=== PATIENT | female | born 1985 | race Caucasian/White ===

== ENCOUNTER 2022-09-11 07:08 | Emergency (ER) | payer MEDICARE, MEDICAID ==
[~2022-09-11] VITALS: Ht 172.7 cm; Wt 105.7 kg
[2022-09-11 07:19] VITALS: BP 157/78
[2022-09-11] MEDS ORDERED: MORPHINE SULFATE 10 MG/ML VIAL IVP ONE (07:55)
[2022-09-11] MEDS ORDERED: KETOROLAC 15 MG/ML VIAL IM ONE (07:55)
--- NOTE | 2022-09-11 09:00 | NUR ---
37F PRESENTS TO ED WITH C/O BACK PAIN WORSENING X2 MONTHS. PT REPORTS A CONSTANT CHRONIC BACK PAIN, SHARP STABBING LIKE, 9/10 ON PAIN SCALE, NONRADIATING. PT DENIES RECENT TRAUMA/INJURY. PT REPORTS HX OF MULTIPLE BACK SURGERIES SINCE .
[2022-09-11] MEDS ORDERED: KETOROLAC 15 MG/ML VIAL IVP ONE (09:05)
--- NOTE | 2022-09-11 09:50 | NUR ---
IV removed, catheter intact and site benign. Applied folded 4x4 gauze and tape to stop bleeding.
[2022-09-11 09:57] VITALS: BP 116/74
--- NOTE | 2022-09-11 09:57 | NUR ---
Patient discharged with v/s stable. Written and verbal after care instructions ABOUT CHRONIC BACK PAIN given and explained. Patient verbalized understanding. Wheel Chair Assisted with by caregiver TO [facility]. All questions addressed prior to discharge. Advised to follow up with PMD. Addendum: 09/11/22 at 1000 by [email or web address] PT HR [id number], JUSTINE TO DC PER DR WILLINGHAM
== END 2022-09-11 07:57 | disposition home or self-care (01) ==
LOC: MED 07:08
DX: M54.50 Low back pain, unspecified (principal)
CPT/HCPCS: 96374; 96375; 99284; J1885; J2270

== ENCOUNTER 2022-11-10 20:56 | Emergency (ER) | payer MEDICARE, MEDICAID ==
[~2022-11-10] VITALS: Ht 170.2 cm; Wt 104.3 kg
[2022-11-10 21:00] VITALS: BP 200/84
--- NOTE | 2022-11-10 21:05 | NUR ---
to lobby a/w bed via w/c
[2022-11-10] MEDS ORDERED: oxyCODONE 10 MG TABER PO ONE (21:50)
[2022-11-10] MEDS ORDERED: OXYC30TA2 PO (22:06)
[2022-11-10 22:57] VITALS: BP 122/74
--- NOTE | 2022-11-10 22:57 | NUR ---
Patient discharged with v/s stable. Written and verbal after care instructions given and explained. Patient alert, oriented and verbalized understanding of instructions. Ambulatory with by parent. All questions addressed prior to discharge. ID band removed. Patient advised to follow up with PMD. Rx of OXYCODONE given. Patient educated on indication of medication including possible reaction and side effects. Opportunity to ask questions provided and answered.
== END 2022-11-10 22:57 | disposition home or self-care (01) ==
LOC: MED 20:56
DX: G89.29 Other chronic pain (principal); M54.50 Low back pain, unspecified; Z76.0 Encounter for issue of repeat prescription; E11.9 Type 2 diabetes mellitus without complications; I10 Essential (primary) hypertension; Z98.890 Other specified postprocedural states; Z79.891 Long term (current) use of opiate analgesic
CPT/HCPCS: 99281

== ENCOUNTER 2022-12-10 19:36 | Emergency (ER) | payer MEDICARE, MEDICAID ==
[~2022-12-10] VITALS: Ht 170.2 cm; Wt 104.3 kg
[~2022-12-10 19:36] MED LIST: OXYC30TA2 PO
[2022-12-10 20:36] VITALS: BP 158/129
--- NOTE | 2022-12-10 23:00 | NUR ---
PT TO 9
--- NOTE | 2022-12-10 23:13 | NUR ---
Patient being evaluated by physician at bedside.
[2022-12-10] MEDS ORDERED: HYDROmorphone PFS 2 MG/ML SYR IM ONE (23:20)
[2022-12-11 00:15] VITALS: BP 158/129
--- NOTE | 2022-12-11 00:15 | NUR ---
Patient discharged with v/s stable. Written and verbal after care instructions given and explained. Patient verbalized understanding. Wheelchair assisted and accompanied by parent. All questions addressed prior to discharge. Advised to follow up with PMD.
== END 2022-12-11 00:15 | disposition home or self-care (01) ==
LOC: MED 19:36
DX: M54.50 Low back pain, unspecified (principal); E11.9 Type 2 diabetes mellitus without complications; I10 Essential (primary) hypertension; Z79.4 Long term (current) use of insulin; Z79.899 Other long term (current) drug therapy; Z98.890 Other specified postprocedural states
CPT/HCPCS: 96372; 99283; J1170

== ENCOUNTER 2023-08-06 19:56 | Emergency (ER) | payer MEDICARE, MEDICAID ==
[~2023-08-06] VITALS: Ht 170.2 cm; Wt 96.2 kg
[2023-08-06 20:40] VITALS: BP 166/113; PULSE 108; RESP 18; TEMP 98.2; O2SAT 98
[2023-08-06] MEDS ORDERED: NACL 0.9% 1,000 ML IV ONE (21:05)
[2023-08-06] MEDS ORDERED: KETOROLAC 30 MG/ML VIAL IVP ONE (21:05)
[2023-08-06 21:11] LABS: BILIRUBIN,URINE NEGATIVE (NEGATIVE); BLOOD, URINE NEGATIVE (NEGATIVE); COLOR,URINE YELLOW (YELLOW); LEUKOCYTE ESTERASE ,URINE NEGATIVE (NEGATIVE); NITRITE, URINE NEGATIVE (NEGATIVE); PROTEIN,URINE NEGATIVE (NEGATIVE); UGLUCOSE 2+ (NEGATIVE); UROBILINOGEN,URINE 0.2 EU/dL (0.2 - 1)
[2023-08-06 21:15] LABS: APPEARANCE,URINE SLIGHTLY HAZY (CLEAR)
[2023-08-06 21:16] LABS: BACTERIA,URINE 4+ /HPF (None Seen); RBC,URINE NONE SEEN /HPF (0-5); WBC,URINE 0-5 /HPF (0-5)
[2023-08-06 21:46] LABS: BASOPHILS # (AUTO) 0.1 K/uL (0.00-0.22); BASOPHILS % (AUTO) 0.6 % (0.0-2.0); EOSINOPHILS # (AUTO) 0.2 K/uL (0-0.4); EOSINOPHILS % (AUTO) 1.5 % (0.0-4.0); HEMATOCRIT 35.8 % (36-48); HEMOGLOBIN 11.5 g/dL (12.0-16.0); LYMPHOCYTES # (AUTO) 3.7 K/uL (2.5-16.5); MEAN CORPUSCULAR HEMOGLOBIN 24 pg (27-31); MEAN CORPUSCULAR HGB CONC 32 g/dL (33-37); MEAN CORPUSCULAR VOLUME 74.1 fL (80-94); MONOCYTES # (AUTO) 0.7 K/uL (0.8-1.0); MONOCYTES % (AUTO) 5.7 % (1.7-9.3); NEUTROPHILS # (AUTO) 6.9 K/uL (1.8-7.7); NEUTROPHILS % (AUTO) 60.2 % (42.2-75.2); PLATELET COUNT (AUTO) 578 K/uL (140-450); RED BLOOD CELL COUNT(AUTO) 4.83 MIL/uL (4.20-5.40); RED CELL DISTRIBUTION WIDTH 15.4 % (11.6-13.7); WHITE BLOOD COUNT (AUTO) 11.4 K/uL (4.8-10.8)
[2023-08-06 22:02] LABS: ANION GAP 18.7 (8-16); CALCIUM 9.6 mg/dL (8.5-10.1); CARBON DIOXIDE 19.9 mmol/L (21-32); CREATININE 0.9 mg/dL (0.6-1.3); POTASSIUM 3.6 mmol/L (3.5-5.1)
[2023-08-06] MEDS ORDERED: KETOROLAC 30 MG/ML VIAL ONE (22:27)
[2023-08-06] MEDS ORDERED: MORPHINE SULFATE 4 MG/ML SYR IVP ONE (22:50)
[2023-08-06] MEDS ORDERED: cefTRIAXone 1,000 MG VIAL ONE (23:02)
[2023-08-06] MEDS ORDERED: CIPR500T4 PO (23:32)
[2023-08-06 23:43] VITALS: BP 138/90; PULSE 82; RESP 17; TEMP 98; O2SAT 98
== END 2023-08-06 23:43 | disposition home or self-care (01) ==
LOC: MED 19:56
DX: N39.0 Urinary tract infection, site not specified (principal); M54.50 Low back pain, unspecified; N93.9 Abnormal uterine and vaginal bleeding, unspecified; E11.9 Type 2 diabetes mellitus without complications; I10 Essential (primary) hypertension; Z79.899 Other long term (current) drug therapy; Z79.2 Long term (current) use of antibiotics
CPT/HCPCS: 36415; 72131; 76856; 80048; 81001; 81025; 85025; 87086; 96365; 96375; 99285; J0696; J1885; J2270; J7030; Q0092

== ENCOUNTER 2023-12-04 00:53 | Emergency (ER) | payer MEDICARE, MEDICAID ==
[~2023-12-04] VITALS: Ht 167.6 cm; Wt 96.2 kg
[~2023-12-04 00:53] MED LIST changes: +CIPR500T4 PO
[2023-12-04 01:26] VITALS: BP 167/112; PULSE 118; RESP 18; TEMP 97.7; O2SAT 96
[2023-12-04] MEDS: ONDANSETRON 4 MG/2 ML VIAL IVP ONE (02:27)
[2023-12-04] MEDS: KETOROLAC 30 MG/ML VIAL IVP ONE (02:27)
[2023-12-04] MEDS: NACL 0.9% 1,000 ML IV SCH (02:28)
[2023-12-04] MEDS: MORPHINE SULFATE 4 MG/ML SYR IVP ONE ×2 (02:35→04:01)
[2023-12-04 02:48] LABS: BASOPHILS % (AUTO) 0.4 % (0.0-2.0); EOSINOPHILS # (AUTO) 0.2 K/uL (0-0.4); EOSINOPHILS % (AUTO) 1.9 % (0.0-4.0); HEMATOCRIT 32.9 % (36-48); HEMOGLOBIN 10.8 g/dL (12.0-16.0); LYMPHOCYTES % (AUTO) 32.1 % (20.5-51.1); MEAN CORPUSCULAR HEMOGLOBIN 25 pg (27-31); MEAN CORPUSCULAR HGB CONC 33 g/dL (33-37); MEAN CORPUSCULAR VOLUME 76.4 fL (80-94); MONOCYTES # (AUTO) 0.4 K/uL (0.8-1.0); MONOCYTES % (AUTO) 4.6 % (1.7-9.3); NEUTROPHILS # (AUTO) 5.7 K/uL (1.8-7.7); PLATELET COUNT (AUTO) 508 K/uL (140-450); RED BLOOD CELL COUNT(AUTO) 4.31 MIL/uL (4.20-5.40); WHITE BLOOD COUNT (AUTO) 9.3 K/uL (4.8-10.8)
[2023-12-04 03:15] LABS: ANION GAP 19.4 (8-16); CALCIUM 8.8 mg/dL (8.5-10.1); CARBON DIOXIDE 19.4 mmol/L (21-32); CREATININE 0.8 mg/dL (0.6-1.3); POTASSIUM 3.8 mmol/L (3.5-5.1)
[2023-12-04] MEDS: NACL 0.9% 1,000 ML IV ONE (04:02)
[2023-12-04 04:03] LABS: BILIRUBIN,URINE NEGATIVE (NEGATIVE); BLOOD, URINE NEGATIVE (NEGATIVE); COLOR,URINE YELLOW (YELLOW); LEUKOCYTE ESTERASE ,URINE NEGATIVE (NEGATIVE); NITRITE, URINE NEGATIVE (NEGATIVE); PROTEIN,URINE TRACE (NEGATIVE); UGLUCOSE NEGATIVE (NEGATIVE); UROBILINOGEN,URINE 0.2 EU/dL (0.2 - 1)
[2023-12-04 04:06] LABS: APPEARANCE,URINE SLIGHTLY HAZY (CLEAR)
[2023-12-04 04:07] LABS: RBC,URINE 0-5 /HPF (0-5); WBC,URINE 0 /HPF (0-5)
[2023-12-04 04:08] LABS: BACTERIA,URINE 1+ /HPF (None Seen); MUCUS,URINE None Seen /LPF (None Seen); SQUAMOUS EPITHELIAL CELL,UR 0-3 (FEW) /LPF (0-3 (FEW))
[2023-12-04 04:17] LABS: ALBUMIN 3.6 g/dL (3.4-5.0); TOTAL BILIRUBIN 0.2 mg/dL (0.0-1.0); TOTAL PROTEIN, SERUM 7.8 g/dL (6.4-8.2)
[2023-12-04 05:05] VITALS: BP 167/112; PULSE 118; RESP 18; TEMP 97.7; O2SAT 96
== END 2023-12-04 05:05 | disposition home or self-care (01) ==
LOC: MED 00:53
DX: R10.9 Unspecified abdominal pain (principal); M54.50 Low back pain, unspecified; R21 Rash and other nonspecific skin eruption; R19.7 Diarrhea, unspecified; E11.9 Type 2 diabetes mellitus without complications; I10 Essential (primary) hypertension; Z79.4 Long term (current) use of insulin; Z79.899 Other long term (current) drug therapy
CPT/HCPCS: 36415; 74176; 80048; 80076; 81001; 81025; 82150; 83690; 85025; 96361; 96374; 96375; 96376; 99285; J1885; J2270; J2405; J7030

== ENCOUNTER 2024-06-11 10:58 | Emergency (ER) | payer MEDICARE, MEDICAID ==
[~2024-06-11] VITALS: Ht 170.2 cm; Wt 97.5 kg
[2024-06-11 11:17] VITALS: BP 151/98; PULSE 133; RESP 22; TEMP 97.5; O2SAT 96
== END 2024-06-11 11:43 | disposition left against medical advice (07) ==
LOC: MED 10:58
DX: T81.89XA Other complications of procedures, not elsewhere classified, initial encounter (principal); R00.0 Tachycardia, unspecified; E11.9 Type 2 diabetes mellitus without complications; I10 Essential (primary) hypertension; Z98.890 Other specified postprocedural states; Z79.899 Other long term (current) drug therapy; Y84.8 Other medical procedures as the cause of abnormal reaction of the patient, or of later complication, without mention of misadventure at the time of the procedure
CPT/HCPCS: 99281